=== PATIENT | male | born 1975 | race Caucasian/White ===

== ENCOUNTER → 2024-05-17 | Day surgery (SDC) | payer BC ==
[~2024-05-17] MED LIST: ASPIRIN81 MG PO; CALCIUM500 MG PO; CHOLESTOFF COM1 EACH PO; ESMOLOL HCL 100MG/10ML 10 MG/ML VIAL ONE; FENTANYL CITRATE/PF 100MCG/2 ML INJ ONE; FISH OIL 1,0001 EAC7 PO; GLUCAGON FOR INJ 1 MG VIAL ONE; GREEN TEA500 MG PO; LACTATED RINGER'S 1,000 ML ONE; LIDOCAINE HCL 2% LOCAL INJ 5 ML SDV VIAL INJ ONE; MULTI-VITAMIN1 EACH PO; PROPOFOL IV EMULSION 10 MG/ML 20 ML VIAL ONE; PROPOFOL IV EMULSION 10 MG/ML 50 ML VIAL IV ONE; VITAMIN B COMP1 EACH PO; VITAMIN D31250 MCG PO; [UNRECOGNIZED DRUG - OTHER] PO
[2024-05-17 14:42] VITALS: TEMP 97.8
[2024-05-17 15:10] VITALS: BP 111/78; PULSE 88; RESP 16; O2SAT 98
== END | disposition home or self-care (01) ==
LOC: OR 12:53
PROVIDERS: ATTEND Internal Medicine Gastroenterology
DX: Z12.11 Encounter for screening for malignant neoplasm of colon (principal); K57.30 Diverticulosis of large intestine without perforation or abscess without bleeding; K64.8 Other hemorrhoids; Z71.3 Dietary counseling and surveillance; R01.1 Cardiac murmur, unspecified; E66.01 Morbid (severe) obesity due to excess calories; G89.29 Other chronic pain; Z71.89 Other specified counseling; Z01.810 Encounter for preprocedural cardiovascular examination; Z79.82 Long term (current) use of aspirin; Z79.899 Other long term (current) drug therapy; Z68.31 Body mass index [BMI] 31.0-31.9, adult
CPT/HCPCS: 45378; 93005; J3010; J7121; J1610; J2003